=== PATIENT | female | born 1995 | race Caucasian/White ===

== ENCOUNTER 2022-10-13 12:11 | Emergency (ER) | payer OTHER ==
[~2022-10-13] VITALS: Ht 175 cm; Wt 142.0 kg
[2022-10-13 12:17] VITALS: BP 157/75
--- NOTE | 2022-10-13 12:51 | ED Upper Extremity ---
General Chief Complaint: Upper Extremity Stated Complaint: RT SHOULDER INJ | WC EVALUATION FOR [facility] Nursing Triage Note: PT AMBULATORY TO ER. REPORTS INJURED R SHOULDER WHILE AT WORK ON 10/11, STATES WAS PUSHING A PALLET AND HEARD A POP SOUND IN HER SHOULDER. PT REPORTS UNABLE TO LIFT ARM ABOVE HEAD WITHOUT INCREASE IN PAIN, HX OF R SHOULDER SURGERY. Source: patient Exam Limitations: no limitations (JON GLYNN APRN) History of Present Illness Date Seen by Provider: Oct 13, 2022 Time Seen by Provider: 12:25 Initial Comments Patient is a 27-year-old female who presents to the emergency department with right shoulder pain that began 2 days ago when she was at work pulling a pallet towards her and she heard a pop in her right shoulder. Patient states the pain was mild initially but is progressively worsened since that time. She states she is unable to lift her arm overhead secondary to the pain. States she had right shoulder surgery last year when she injured her shoulder in the gym but states she is fully recovered and had no issues prior to this injury. She presents at the recommendation of her employer's occupational health nurse. (JON GLYNN APRN) Allergies and Home Medications Patient Home Medication List Home Medication List Reviewed: Yes (JON GLYNN APRN) Review of Systems Constitutional: no symptoms reported EENTM: no symptoms reported Respiratory: no symptoms reported Cardiovascular: no symptoms reported Gastrointestinal: no symptoms reported Genitourinary: no symptoms reported Musculoskeletal: see HPI, joint pain Skin: no symptoms reported Psychiatric/Neurological: No Symptoms Reported (JON GLYNN APRN) Past Bvxogwq-Ebmxab-Nqffkw Hx Patient Social History Tobacco Use?: No Use of E-Cig and/or Vaping dev: No Substance use?: No Alcohol Use?: No Pt feels they are or have been: No (JON GLYNN APRN) Immunizations Up To Date First/Initial COVID19 Vaccinat: DENIES (JON GLYNN APRN) Past Medical History Last Menstrual Period: Sep 21, 2022 (JON GLYNN APRN) Physical Exam Vital Signs Vital Signs - First Documented 10/13/22 12:17 Temp 36.9 Pulse 82 Resp 20 B/P (MAP) 157/75 (102) Pulse Ox 98 O2 Delivery Room Air (CELI VASQUES MD) Vital Signs Capillary Refill : (JON GLYNN APRN) Height, Weight, BMI Height: '" Weight: lbs. oz. kg; 46.00 BMI Method: General Appearance: WD/WN, no apparent distress HEENT: PERRL/EOMI, normal ENT inspection, TMs normal, pharynx normal Neck: non-tender, full range of motion, supple, normal inspection Respiratory: chest non-tender, lungs clear, normal breath sounds, no respiratory distress, no accessory muscle use Gastrointestinal: normal bowel sounds, non tender, soft Shoulder: limited ROM, pain, soft tissue tenderness Neurologic/Psychiatric: no motor/sensory deficits, alert, normal mood/affect, oriented x 3 Skin: normal color, warm/dry (JON GLYNN APRN) Progress/Results/Core Measures Results/Orders Blood Pressure Mean: 102 Progress Progress Note : Progress Note Patient is nontoxic and well-hydrated on exam. Vital signs are reassuring. Patient does have limited abduction of the right shoulder secondary to pain. There is some very mild tenderness to palpation about the anterior shoulder. No crepitus noted with range of motion of the shoulder. Order placed for right shoulder x-rays. X-rays are acutely negative for osseous injury. Patient likely suffered a sprain of the right shoulder. Her Workmen's Compensation paperwork was filled out including restrictions for pulling/pushing or reaching with the affected extremity. Discussed importance of NSAIDs. Follow-up with orthopedics if symptoms or not beginning to improve after 5 to 7 days. Return precautions for urgent symptomology discussed. Patient verbalized understanding. (JON GLYNN APRN) Departure Impression Primary Impression: Sprain of right shoulder Qualified Codes: S43.401A - Unspecified sprain of right shoulder joint, initial encounter Disposition: 01 HOME, SELF-CARE Condition: Stable Departure-Patient Inst. Decision time for Depature: 13:15 (JON GLYNN APRN) Referrals: NO,LOCAL PHYSICIAN (PCP) Primary Care Physician FIDEL QUINONES MD Patient Instructions: Shoulder Sprain ED ATTENDING PHYSICIAN NOTE: I was physically present as attending physician in the emergency department during the care of this patient, but I was not directly involved in the decision making or delivery of care for this patient. (CELI VASQUES MD) JON GLYNN APRN Oct 13, 2022 12:51 CELI VASQUES MD Oct 14, 2022 06:11
--- NOTE | 2022-10-13 13:01 | Diagnostic Imaging Report ---
INDICATION: Right shoulder pain post injury. TECHNIQUE: AP, oblique, and transscapular views of the right shoulder were obtained. FINDINGS: No fracture or acute bony abnormality is seen. The glenohumeral joint and AC joint appear unremarkable. IMPRESSION: Negative right shoulder. Dictated by: Dictated on workstation # [id number]
== END 2022-10-13 13:23 | disposition home or self-care (01) ==
LOC: ER 12:15
DX: S43.401A Unspecified sprain of right shoulder joint, initial encounter (principal); Z28.310 Unvaccinated for COVID-19; Z98.890 Other specified postprocedural states; X50.1XXA Overexertion from prolonged static or awkward postures, initial encounter; Y92.59 Other trade areas as the place of occurrence of the external cause; Y99.0 Civilian activity done for income or pay
CPT/HCPCS: 73030

== ENCOUNTER 2023-05-27 14:26 | Emergency (ER) | payer OTHER ==
[~2023-05-27] VITALS: Ht 175 cm; Wt 145.0 kg
[2023-05-27] MEDS ORDERED: NAPROXEN 250 MG TABLET PO ONE (15:00)
--- NOTE | 2023-05-27 15:05 | ED Upper Extremity ---
General Chief Complaint: Upper Extremity Stated Complaint: INJ LEFT SHOULDER Nursing Triage Note: PT PRESENTS TO ED VIA POV FROM HOME WITH COMPLAINTS OF L SHOULDER PAIN AFTER TRIPPING OVER A BOX AT WORK ON SUNDAY AND LANDING ON HER L SIDE ON A PALET. PT REPORTS PAIN WAS NOTICEABLE YESTERDAY BUT SIG WORSE TODAY. Source: patient Exam Limitations: no limitations (NIKKI SERRANO) History of Present Illness Date Seen by Provider: May 27, 2023 Time Seen by Provider: 14:50 Initial Comments 28yo F presents to ED with c/o left shoulder pain following a fall backwards onto an outstretched hand yesterday. Pt states that yesterday, while moving boxes, she tripped and fell backwards onto her outstretched left hand. States that she felt a pop in her shoulder at time but only had minimal pain and had full ROM immediately after. Pt says that she took tylenol before bed with relief. This morning, pt states that she experienced increased sharp pain in her left shoulder through to her axilla and decreased ROM secondary to pain. Also states that throughout day she experienced swelling in her L hand and some tingling in her fingertips. Pt rates her pain a 2/10 at rest and a 10/10 with movement. Denies having taken any pain medication today. Denies striking head, LOC, decreased sensation of L hand, nausea, vomiting, CP, and SOA. Onset: yesterday Severity: mild Pain/Injury Location: left shoulder Method of Injury: fell Modifying Factors: Improves With Movement (exacerbation of pain), Improves With Pain Medication (relief with tylenol), Improves With Rest (improves pain) (NIKKI SERRANO) Allergies and Home Medications Allergies Coded Allergies: No Known Drug Allergies (Unverified , 05/27/23) Patient Home Medication List Home Medication List Reviewed: Yes (NIKKI SERRANO) Home Medication List Reviewed: Yes (GEORGIE DURAN MD) Review of Systems Constitutional: no symptoms reported EENTM: no symptoms reported Respiratory: no symptoms reported Cardiovascular: no symptoms reported Gastrointestinal: no symptoms reported Genitourinary: no symptoms reported Musculoskeletal: joint pain (L shoulder pain ); No muscle weakness Skin: no symptoms reported Psychiatric/Neurological: No Symptoms Reported (NIKKI SERRANO) All Other Systems Reviewed Negative Unless Noted: Yes (NIKKI SERRANO) Past Myxvdnk-Ydpiem-Pvolcm Hx Patient Social History Tobacco Use?: No Substance use?: No Alcohol Use?: No Pt feels they are or have been: No (NIKKI SERRANO) Immunizations Up To Date First/Initial COVID19 Vaccinat: DENIES Second COVID19 Vaccination Sj: DENIES Third COVID19 Vaccination Date: DENIES (NIKKI SERRANO) Past Medical History Surgery/Hospitalization HX: PMH: STREP, HTN Surgeries: Yes Orthopedic (R rotator cuff repair x 2) Respiratory: No Cardiac: Yes Hypertension Neurological: No Reproductive Disorders: No Genitourinary: No Gastrointestinal: No Musculoskeletal: No Endocrine: No HEENT: No Cancer: No Psychosocial: Yes Anxiety, Depression Integumentary: No (NIKKI SERRANO) Family Medical History No Pertinent Family Hx (NIKKI SERRAON) Physical Exam Vital Signs Vital Signs - First Documented 05/27/23 14:35 Temp 36.5 Pulse 89 Resp 20 B/P (MAP) 162/93 (116) Pulse Ox 97 (GEORGIE DURAN MD) Vital Signs Capillary Refill : Less Than 3 Seconds (NIKKI SERRANO) Height, Weight, BMI Height: '" Weight: lbs. oz. kg; 47.00 BMI Method: General Appearance: WD/WN, no apparent distress HEENT: PERRL/EOMI Cardiovascular: regular rate, rhythm, no murmur Respiratory: lungs clear, normal breath sounds, no respiratory distress, no accessory muscle use Shoulder: limited ROM (limited active ROM secondary to pain of L shoulder, has full ROM from elbow down), pain (pain with left shoulder movement and palpation of L axilla) Elbow/Forearm: normal inspection, non-tender, normal ROM Wrist: Yes normal inspection, Yes non-tender, Yes normal ROM Hand: normal inspection, non-tender, normal ROM Neurologic/Tendon: normal sensation (of LUE), normal motor functions (of LUE) Neurologic/Psychiatric: alert, normal mood/affect, oriented x 3 Skin: normal color, warm/dry Lymphatic: no adenopathy (NIKKI SERRANO) Progress/Results/Core Measures Results/Orders My Orders (GEORGIE DURAN MD) Medications Given in ED (GEORGIE DURAN MD) Vital Signs/I&O (GEORGIE DURAN MD) Blood Pressure Mean: 116 Progress Progress Note : Time: 15:30 Progress Note Patient seen and evaluated by me. I have reviewed the medical student's documentation and agree. Eval by me today includes physical exam and left shoulder xrays. Pertinent physical exam includes - WDWN obese female in mild distress due to shoulder pain. Painful passive rom - ROM limited in internal and external rotation. No crepitance to the shoulder joint. no bony abnormalities. distal NVI. No elbow tenderness or issues with ROM to the elbow or wrist/fingers. DDx based on H&P - shoulder strain Xrays independently reviewed and interpreted by me. No bony abnormality or dislocation. Patient instructed on rest, ice and gentle stretching. Return precautions provided in both verbal and written format. All questions sought and answered. (GEORGIE DURAN MD) Diagnostic Imaging Diagonstic Imaging: Xray Comments [facility], [place] NAME: RYAN JONES Khris [facility] REC#: [id number] PT STATUS: REG ER : 1995 PHYSICIAN: GEORGIE DURAN MD ADMIT DATE: 05/27/23/ER Draft Date of Exam:05/27/23 SHOULDER, LEFT, 3 VIEWS INDICATION: Left shoulder pain after fall. COMPARISON: None. DISCUSSION: Three views of left shoulder were obtained. No acute fracture, dislocation or other osseous abnormality identified. No significant degenerative disease. Alignment is anatomic. Soft tissues are unremarkable. IMPRESSION: Negative left shoulder. Dictated on workstation # [id number] Dict: 05/27/23 1519 Trans: 05/27/23 1521 [facility] [id number] Interpreted by: RAJIV JASMINE MD Electronically signed by: (GEORGIE DURAN MD) Departure Impression Primary Impression: Left shoulder strain Qualified Codes: S46.912A - Strain of unspecified muscle, fascia and tendon at shoulder and upper arm level, left arm, initial encounter Disposition: HOME, SELF-CARE Condition: Stable Departure-Patient Inst. Decision time for Depature: 15:29 (GEORGIE DURAN MD) Referrals: NO,LOCAL PHYSICIAN (PCP/Family) Primary Care Physician Add. Discharge Instructions: You can take taux-eig-lxudply ibuprofen or Aleve for pain. Follow packaging instructions. Always take these medications with food. Do not combine them. Ice packs will also help with pain relief. You can also try ychp-soe-pyzthtd Biofreeze. If your symptoms are not improving after 2 weeks please follow-up with orthopedics for further evaluation. Return to the emergency department for any new, concerning or emergent com plaints. Verification and Attestation of Medical Student E/M Service A medical student performed and documented this service in my presence. I reviewed and verified all information documented by the medical student and made modifications to such information, when appropriate. I personally performed the physical exam and medical decision making. Georgie Duran, May 30, 2023,03:08 (GEORGIE DURAN MD) NIKKI SERRANO May 27, 2023 15:05 GEORGIE DURAN MD May 27, 2023 15:31
--- NOTE | 2023-05-27 15:22 | Diagnostic Imaging Report ---
INDICATION: Left shoulder pain after fall. COMPARISON: None. DISCUSSION: Three views of left shoulder were obtained. No acute fracture, dislocation or other osseous abnormality identified. No significant degenerative disease. Alignment is anatomic. Soft tissues are unremarkable. IMPRESSION: Negative left shoulder. Dictated by: Dictated on workstation # [id number]
[2023-05-27 15:34] VITALS: BP 162/93
== END 2023-05-27 15:34 | disposition home or self-care (01) ==
LOC: EDUNIT# 14:26 → ER 14:28
DX: S46.912A Strain of unspecified muscle, fascia and tendon at shoulder and upper arm level, left arm, initial encounter (principal); Z28.310 Unvaccinated for COVID-19; W01.0XXA Fall on same level from slipping, tripping and stumbling without subsequent striking against object, initial encounter; X50.0XXA Overexertion from strenuous movement or load, initial encounter; Y92.59 Other trade areas as the place of occurrence of the external cause; Y99.0 Civilian activity done for income or pay
CPT/HCPCS: 73030